=== PATIENT | female | born 1990 | race Caucasian/White ===

== ENCOUNTER 2023-05-20 08:01 | Day surgery (SDC) | payer BC ==
[~2023-05-20] VITALS: Ht 165.1 cm; Wt 126.2 kg
[2023-05-20] VITALS (13 sets, daily range): BP systolic 122–143; BP diastolic 61–81
[~2023-05-20 08:01] MED LIST: BCP; PROM25 PO; [UNRECOGNIZED DRUG - OTHER]
[2023-05-20] MEDS ORDERED: SERT50 PO (08:18)
[2023-05-20] MEDS ORDERED: PANT40 PO (08:19)
[2023-05-20] MEDS ORDERED: ZYRTEC10 M2 PO (08:19)
[2023-05-20] MEDS ORDERED: ZINC15 PO (08:20)
[2023-05-20] MEDS ORDERED: VITAMIN D31000 UNI1 PO (08:20)
[2023-05-20] MEDS ORDERED: Flonase 0.05% N16 GM (08:20)
[2023-05-20] MEDS ORDERED: PRENATAL TABLE1 EAC2 PO (08:21)
--- NOTE | 2023-05-20 09:48 | NUR ---
PRE-OP NOTE PT A&OX4, BREATHING RA, AT BEDSIDE, NO ACUTE COCNERNS. PT LAST PO WAS AT 0700 SMALL SIP OF WATER AND MEDICATION OTHERWISE NPO SINCE YESTERDAY DAVID. Ambulatory in Day Surgery PT BELONGINGS PLACED BELOW STRETCHER. Pre-Op teaching done. Pt verbalizes understanding. Patient States Post-Procedure ride home has been arranged.LAB UNABLE TO DRAW TYPE & SCREEN, AGREED BY CIRCULATING RN AND ANESTHESIA THAT IT CAN BE DRAWN IN OR, THEY WILL CALL FOR DRAW.
[2023-05-20 10:06] LABS: BASOPHILS ABSOLUTE AUTO 0.03 K/mm3 (0.00-0.23); BASOPHILS PERCENT AUTO 0 % (0-2); EOSINOPHILS ABSOLUTE AUTO 0.13 K/mm3 (0.00-0.68); EOSINOPHILS PERCENT AUTO 2 % (0-6); Hematocrit 36.9 % (33.0-51.0); Hemoglobin 12.4 g/dL (11.5-16.0); IMMATURE GRAN ABSOLUTE AUTO 0.04 K/mm3 (0.00-0.10); IMMATURE GRAN PERCENT AUTO 1 % (0-1); LYMPHOCYTES ABSOLUTE AUTO 1.47 K/mm3 (0.84-5.20); LYMPHOCYTES PERCENT AUTO 22 % (21-46); MONOCYTES ABSOLUTE AUTO 0.52 K/mm3 (0.16-1.47); MONOCYTES PERCENT AUTO 8 % (4-13); Mean Corpuscular HGB 28.4 pg (26.0-34.0); Mean Corpuscular HGB Conc 33.6 g/dL (31.5-36.5); Mean Corpuscular Volume 85 fL (80-100); NEUTROPHILS ABSOLUTE AUTO 4.57 K/mm3 (1.96-9.15); NEUTROPHILS PERCENT AUTO 68 % (41-73); RDW Coefficient Variation 13.4 % (11.7-14.2); RDW Standard Deviation 41.6 fL (35.1-46.3); Red Blood Cell Count 4.36 M/mm3 (3.80-5.20); White Blood Cell Count 6.76 K/mm3 (4.00-11.30)
[2023-05-20 11:18] LABS: Mean Platelet Volume 10.5 fL (9.1-12.4); Platelet Count 298 K/mm3 (150-400)
--- NOTE | 2023-05-20 12:51 | NUR ---
Ambulatory in Day Surgery. Discharge instructions reviewed with patient. Patient verbalizes understanding. Copy given to patient to take home. Discharged via wheelchair to private car for ride home WITH . BELONGINGS GIVEN BACK TO PATIENT.
== END 2023-05-20 12:56 | disposition home or self-care (01) ==
LOC: ORSCMMR 08:01 → ORD 10:15 → ORSCMMR 12:56
PROVIDERS: Obstetrics & Gynecology
PROC: 10T24ZZ Resection of Products of Conception, Ectopic, Percutaneous Endoscopic Approach (ICD-10-PCS; principal; 2023-05-20 09:30)
PROC: 0UT64ZZ Resection of Left Fallopian Tube, Percutaneous Endoscopic Approach (ICD-10-PCS; principal; 2023-05-20 09:30)
DX: O00.102 Left tubal pregnancy without intrauterine pregnancy (principal); F41.8 Other specified anxiety disorders; K21.9 Gastro-esophageal reflux disease without esophagitis; Z79.899 Other long term (current) drug therapy; E66.01 Morbid (severe) obesity due to excess calories; Z68.42 Body mass index [BMI] 45.0-49.9, adult
CPT/HCPCS: 36416; 85025; 86850; 86900; 86901; 88305; A9270; J0461; J1100; J1170; J1885; J2060; J2250; J2405; J2704; J3010; J7120

== ENCOUNTER → 2024-07-30 | Outpatient (CLI) | payer BC ==
[~2024-07-30] MED LIST changes: +Flonase 0.05% N16 GM; +PANT40 PO; +PRENATAL TABLE1 EAC2 PO; +SERT50 PO; +VITAMIN D31000 UNI1 PO; +ZINC15 PO; +ZYRTEC10 M2 PO
== END | disposition home or self-care (01) ==
LOC: LAB SHORT 15:33 → LAB 15:33
DX: O09.90 Supervision of high risk pregnancy, unspecified, unspecified trimester (principal)
CPT/HCPCS: 87081; 87150

== ENCOUNTER 2024-08-19 19:08 | Inpatient (IN) | payer BC ==
[~2024-08-19] VITALS: Ht 165.1 cm; Wt 141.0 kg
[2024-08-19] MEDS ORDERED: Tranexamic Acid 100 ML IV SCH (19:20)
[2024-08-19] MEDS ORDERED: OXYTOCIN/RINGER'S LACTATE 500 ML IV PRN (19:20)
[2024-08-19] MEDS ORDERED: Methylergonovine Maleate 0.2MG / ML 1ML Amp IM PRN (19:20)
[2024-08-19] MEDS ORDERED: Lactated Ringer's 1,000 ML IV PRN (19:20)
[2024-08-19] MEDS ORDERED: Misoprostol 200 MCG Tab BC PRN (19:20)
[2024-08-19] MEDS ORDERED: Carboprost Tromethamine 250 MCG/ML 1ML Amp IM PRN (19:20)
[2024-08-19] MEDS ORDERED: Ondansetron HCl 2 MG / ML 2ML Vial IV PRN (19:20)
[2024-08-19] MEDS ORDERED: Lactated Ringer's 1,000 ML IV SCH ×3 (19:20→19:25)
[2024-08-19] MEDS ORDERED: ePHEDrine Sulfate 50 MG/ML 1ML Injection XX PRN (19:20)
[2024-08-19] MEDS ORDERED: Acetaminophen 500 MG Tab PO PRN (19:20)
[2024-08-19] MEDS ORDERED: Oxytocin 10 Unit / ML Vial IM PRN (19:20)
[2024-08-19] MEDS ORDERED: FentaNYL 2mcg/ml-Bup 0.1% Epd 250 ML EPI PRN (19:20)
[2024-08-19] MEDS ORDERED: Calcium Carbonate 500 MG Tab Chew PO PRN (19:20)
[2024-08-19] MEDS ORDERED: Misoprostol 200 MCG Tab PR PRN (19:20)
[2024-08-19] MEDS ORDERED: Penicillin G Potassium 5,000,000 UNITS in NS 250 ML IV ONE (19:20)
[2024-08-19] MEDS ORDERED: OXYTOCIN/RINGER'S LACTATE 500 ML IV SCH (19:25)
[2024-08-19] MEDS ORDERED: Misoprostol 25 MCG Tab VAG PRN (19:25)
[2024-08-19 19:44] VITALS: BP 156/88
[2024-08-19 20:03] VITALS: BP 142/87
[2024-08-19 20:12] LABS: BASOPHILS ABSOLUTE AUTO 0.04 K/mm3 (0.00-0.23); BASOPHILS PERCENT AUTO 0 % (0-2); EOSINOPHILS PERCENT AUTO 1 % (0-6); Hematocrit 35.7 % (33.0-51.0); Hemoglobin 11.8 g/dL (11.5-16.0); IMMATURE GRAN ABSOLUTE AUTO 0.04 K/mm3 (0.00-0.10); IMMATURE GRAN PERCENT AUTO 0 % (0-1); LYMPHOCYTES ABSOLUTE AUTO 1.53 K/mm3 (0.84-5.20); LYMPHOCYTES PERCENT AUTO 17 % (21-46); MONOCYTES ABSOLUTE AUTO 0.52 K/mm3 (0.16-1.47); MONOCYTES PERCENT AUTO 6 % (4-13); Mean Corpuscular HGB 27.7 pg (26.0-34.0); Mean Corpuscular HGB Conc 33.1 g/dL (31.5-36.5); Mean Corpuscular Volume 84 fL (80-100); Mean Platelet Volume 11.8 fL (9.1-12.4); NEUTROPHILS PERCENT AUTO 76 % (41-73); Platelet Count 241 K/mm3 (150-400); RDW Coefficient Variation 14.5 % (11.7-14.2); RDW Standard Deviation 43.1 fL (35.1-46.3); Red Blood Cell Count 4.26 M/mm3 (3.80-5.20); White Blood Cell Count 9.13 K/mm3 (4.00-11.30)
[2024-08-19] MEDS ORDERED: FentaNYL Citrate 50 MCG/ML 2 ML Injection IV PRN (20:20)
[2024-08-19 21:42] VITALS: BP 150/86
[2024-08-19 22:29] VITALS: BP 122/66
[2024-08-19 23:13] VITALS: BP 136/87
[2024-08-19] MEDS ORDERED: Zolpidem Tartrate 10 MG Tab PO ONE (23:40)
[2024-08-19 23:59] VITALS: BP 134/64
[2024-08-20] VITALS (29 sets, daily range): BP systolic 119–175; BP diastolic 58–108
[2024-08-20] MEDS ORDERED: Penicillin G Potassium 2,500,000 UNITS in Dextrose 5% 100 ML IV SCH
[2024-08-20] MEDS ORDERED: Pantoprazole Sodium 40 MG Tab PO SCH (09:00)
[2024-08-20] MEDS ORDERED: ePHEDrine Sulfate 50 MG/ML 1ML Injection IV PRN (11:40)
[2024-08-20] MEDS ORDERED: Sertraline HCl 50 MG Tab PO SCH (14:05)
--- NOTE | 2024-08-20 16:59 | NUR ---
REVIEWED PATIENT WITH SCARF GLUER
[2024-08-20] MEDS ORDERED: Benzocaine Topical Anesthetic Spray 60GM TOP PRN (23:55)
[2024-08-20] MEDS ORDERED: Ibuprofen 400 MG Tab PO PRN (23:55)
[2024-08-20] MEDS ORDERED: Witch Hazel/Glycerin PADS TOP PRN (23:55)
[2024-08-20] MEDS ORDERED: Lanolin Cream TOP PRN (23:55)
[2024-08-20] MEDS ORDERED: Docusate Sodium 100 MG Cap PO PRN (23:55)
[2024-08-21] MEDS ORDERED: Ketorolac Tromethamine 30mg Vial IV SCH
[2024-08-21] MEDS ORDERED: Ketorolac Tromethamine 30mg Vial IV PRN (00:31)
--- NOTE | 2024-08-21 00:43 | NUR ---
Pt up to BR. pt showered, washed hair and linens chnaged. New clothing. Alison care taught and meds at [facility]. Ice provided to alison. pt responded to feeding cues appropriately.
--- NOTE | 2024-08-21 01:00 | NUR ---
pt voided prior to shower.
[2024-08-21 03:38] VITALS: BP 130/62
[2024-08-21 06:13] LABS: BASOPHILS ABSOLUTE AUTO 0.04 K/mm3 (0.00-0.23); BASOPHILS PERCENT AUTO 0 % (0-2); EOSINOPHILS ABSOLUTE AUTO 0.07 K/mm3 (0.00-0.68); EOSINOPHILS PERCENT AUTO 1 % (0-6); Hematocrit 27.9 % (33.0-51.0); Hemoglobin 9.2 g/dL (11.5-16.0); IMMATURE GRAN ABSOLUTE AUTO 0.04 K/mm3 (0.00-0.10); IMMATURE GRAN PERCENT AUTO 0 % (0-1); LYMPHOCYTES ABSOLUTE AUTO 1.58 K/mm3 (0.84-5.20); LYMPHOCYTES PERCENT AUTO 14 % (21-46); MONOCYTES ABSOLUTE AUTO 0.83 K/mm3 (0.16-1.47); MONOCYTES PERCENT AUTO 7 % (4-13); Mean Corpuscular Volume 85 fL (80-100); Mean Platelet Volume 11.5 fL (9.1-12.4); NEUTROPHILS ABSOLUTE AUTO 8.76 K/mm3 (1.96-9.15); NEUTROPHILS PERCENT AUTO 77 % (41-73); Platelet Count 194 K/mm3 (150-400); RDW Coefficient Variation 14.5 % (11.7-14.2); RDW Standard Deviation 44.4 fL (35.1-46.3); Red Blood Cell Count 3.28 M/mm3 (3.80-5.20); White Blood Cell Count 11.32 K/mm3 (4.00-11.30)
[2024-08-21 07:46] VITALS: BP 150/73
[2024-08-21] MEDS ORDERED: Prenatal Vit/FE Fumarate/FA 1 Tab PO SCH (09:00)
[2024-08-21 11:53] VITALS: BP 135/74
[2024-08-21 15:28] VITALS: BP 143/83
--- NOTE | 2024-08-21 15:50 | NUR ---
[facility] REFERRAL DEPRESSION SCALE SCORE 13, PT REPORTED USE OF 150MG ZOLOFT SINCE 2019. [facility] REFERRAL ORDER PLACED AND SW NOTIFIED. SPOKE WITH MANDA HAYES FOLLOWING CONSULT. INFORMED THAT PT VERBALIZES UNDERSTANDING OF SUPPORTS AND RESOURCES AVAILABLE FOR DEPRESSION. [facility] INFORMS EXTENSIVE COMMUNICATIONS BETWEEN PROVIDER AND PT REGARDING USE OF ANTIDEPPRASSANTS AND POST DEPRESSION. [facility] REPORTS NO CONCERNS AT THIS TIME. PT INSTRUCTED TO CALL PCP FOR F/U.
[2024-08-21 19:18] VITALS: BP 142/88
== END 2024-08-21 22:35 | disposition home or self-care (01) | DRG 807 ==
LOC: OBS 19:08 → BC 19:11 → OBS 19:36 → BC 19:38
PROVIDERS: ADMIT Obstetrics & Gynecology
PROC: 10E0XZZ Delivery of Products of Conception, External Approach (ICD-10-PCS; principal; 2024-08-20)
PROC: 0KQM0ZZ Repair Perineum Muscle, Open Approach (ICD-10-PCS; 2024-08-20)
PROC: 10907ZC Drainage of Amniotic Fluid, Therapeutic from Products of Conception, Via Natural or Artificial Opening (ICD-10-PCS; 2024-08-20)
PROC: 3E033VJ Introduction of Other Hormone into Peripheral Vein, Percutaneous Approach (ICD-10-PCS; 2024-08-20)
PROC: 10H07YZ Insertion of Other Device into Products of Conception, Via Natural or Artificial Opening (ICD-10-PCS; 2024-08-20)
DX: O99.214 Obesity complicating childbirth (principal); Z37.0 Single live birth; Z3A.39 39 weeks gestation of pregnancy; O24.420 Gestational diabetes mellitus in childbirth, diet controlled; O36.63X0 Maternal care for excessive fetal growth, third trimester, not applicable or unspecified; O99.343 Other mental disorders complicating pregnancy, third trimester; F41.8 Other specified anxiety disorders; O99.820 Streptococcus B carrier state complicating pregnancy; O13.4 Gestational [pregnancy-induced] hypertension without significant proteinuria, complicating childbirth; O70.1 Second degree perineal laceration during delivery
CPT/HCPCS: 36415; 51702; 59200; 82947; 85025; 86850; 86900; 86901; 86923; 94660; A9270; J1885; J2405; J2540; J2590; J7050; J7120